=== PATIENT | male | born 1990 | race Caucasian/White ===

== ENCOUNTER 2018-03-03 11:41 | Emergency (ER) | payer MEDICAID ==
[~2018-03-03] VITALS: Ht 172.7 cm; Wt 84.1 kg
[2018-03-03 13:08] LABS: BASOPHILS % (AUTO) 0.5 % (0.0-2.0); EOSINOPHILS % (AUTO) 0 % (1.0-6.0); HEMATOCRIT 46.9 % (41-53); HEMOGLOBIN 16.3 g/dL (13.5-17.5); LYMPHOCYTES # (AUTO) 1.7 K/uL (1.0-4.8); LYMPHOCYTES % (AUTO) 15.5 % (22.0-44.0); MEAN CORPUSCULAR HEMOGLOBIN 30.5 pg (26.0-34.0); MEAN CORPUSCULAR HGB CONC 34.8 G/dL (31.0-37.0); MEAN CORPUSCULAR VOLUME 88 fL (80-100); MONOCYTES # (AUTO) 0.7 K/uL (0.1-1.0); MONOCYTES % (AUTO) 6.3 % (2.0-9.0); NEUTROPHILS # (AUTO) 8.3 K/uL (1.8-7.7); NEUTROPHILS % (AUTO) 77.7 % (40.0-70.0); PLATELET COUNT (AUTO) 360 K/uL (150-450); RED BLOOD CELL COUNT(AUTO) 5.35 MIL/uL (4.50-5.90); RED CELL DISTRIBUTION WIDTH 13.2 % (11.5-14.5)
[2018-03-03 13:34] LABS: ALANINE AMINOTRANSFERASE 23 U/L (12-78); ALBUMIN 4.4 g/dL (3.4-5.0); ALKALINE PHOSPHATASE 78 U/L (46-116); ASPARTATE AMINOTRANSFERASE 16 U/L (15-37); BILIRUBIN,TOTAL 0.4 mg/dL (0.1-1.0); CALCIUM, TOTAL 9.9 mg/dL (8.8-10.5); CARBON DIOXIDE 26 mmol/L (22-29); CREATININE 1.12 mg/dL (0.60-1.30); GLOMERULAR FILTR. RATE CALC > 60 mL/min (>60); GLUCOSE,RANDOM 115 mg/dL (70-110); TOTAL PROTEIN, SERUM 8.4 g/dL (6.4-8.2); UREA NITROGEN, BLOOD 9 mg/dL (7-18)
[2018-03-03 13:44] LABS: ANION GAP 13 mmol/L (8-16); CHLORIDE 101 mmol/L (98-107); POTASSIUM 3.2 mmol/L (3.5-5.1); SODIUM SERUM 140 mmol/L (136-145)
[2018-03-03 15:23] VITALS: BP 170/115
== END 2018-03-03 15:52 | disposition home or self-care (01) ==
LOC: EMS 11:42
DX: F22 Delusional disorders (principal); R00.0 Tachycardia, unspecified
CPT/HCPCS: 36415; 80053; 85025; 93005; 99285; G0480

== ENCOUNTER 2018-03-05 12:35 | Inpatient (IN) | payer MEDICAID, OTHER ==
[~2018-03-05] VITALS: Ht 180.3 cm; Wt 72.1 kg
[2018-03-05] MEDS ORDERED: LORazepam 2 MG/ML VIAL IM ONE (13:15)
[2018-03-05] MEDS ORDERED: DiphenhydrAMINE HCL 50 MG/ML VIAL IM ONE (13:15)
[2018-03-05] MEDS ORDERED: HALOPERIDOL LACTATE 5 MG/ML VIAL IM ONE (13:15)
[2018-03-05] MEDS ORDERED: ZOLPIDEM TARTRATE 10 MG TABLET PO PRN (13:30)
[2018-03-05] MEDS ORDERED: HALOPERIDOL 5 MG TABLET PO PRN (13:30)
[2018-03-05 13:52] LABS: BASOPHILS % (AUTO) 0.6 % (0.0-2.0); EOSINOPHILS % (AUTO) 0.1 % (1.0-6.0); HEMATOCRIT 43.6 % (41-53); HEMOGLOBIN 14.9 g/dL (13.5-17.5); LYMPHOCYTES # (AUTO) 2.1 K/uL (1.0-4.8); LYMPHOCYTES % (AUTO) 24.5 % (22.0-44.0); MEAN CORPUSCULAR HEMOGLOBIN 30.4 pg (26.0-34.0); MEAN CORPUSCULAR HGB CONC 34.3 G/dL (31.0-37.0); MEAN CORPUSCULAR VOLUME 89 fL (80-100); MONOCYTES # (AUTO) 0.7 K/uL (0.1-1.0); MONOCYTES % (AUTO) 7.9 % (2.0-9.0); NEUTROPHILS # (AUTO) 5.7 K/uL (1.8-7.7); NEUTROPHILS % (AUTO) 66.9 % (40.0-70.0); PLATELET COUNT (AUTO) 328 K/uL (150-450); RED BLOOD CELL COUNT(AUTO) 4.92 MIL/uL (4.50-5.90); RED CELL DISTRIBUTION WIDTH 13.3 % (11.5-14.5)
[2018-03-05 14:04] LABS: ANION GAP 11 mmol/L (8-16); CALCIUM, TOTAL 9.3 mg/dL (8.8-10.5); CARBON DIOXIDE 27 mmol/L (22-29); CHLORIDE 105 mmol/L (98-107); CREATININE 1.02 mg/dL (0.60-1.30); GLOMERULAR FILTR. RATE CALC > 60 mL/min (>60); GLUCOSE,RANDOM 91 mg/dL (70-110); POTASSIUM 3.5 mmol/L (3.5-5.1); SODIUM SERUM 143 mmol/L (136-145); UREA NITROGEN, BLOOD 9 mg/dL (7-18)
[2018-03-05 14:09] LABS: ALANINE AMINOTRANSFERASE 21 U/L (12-78); ALBUMIN 3.9 g/dL (3.4-5.0); ALKALINE PHOSPHATASE 72 U/L (46-116); ASPARTATE AMINOTRANSFERASE 20 U/L (15-37); BILIRUBIN,TOTAL 0.6 mg/dL (0.1-1.0); TOTAL PROTEIN, SERUM 7.4 g/dL (6.4-8.2)
[2018-03-06 00:29] VITALS: BP 119/83
[2018-03-06] MEDS ORDERED: GuaiFENesin/D-METHORPHAN [SUGAR-FREE] 200-20MG/10 ML SYRUP UDCUP PO PRN (07:15)
[2018-03-06] MEDS ORDERED: IBUPROFEN 400 MG TABLET PO PRN (07:15)
[2018-03-06] MEDS ORDERED: LOPERAMIDE HCL 2 MG CAPSULE PO PRN (07:15)
[2018-03-06] MEDS ORDERED: PETROLATUM,WHITE 71 GM JELLY TP PRN (07:15)
[2018-03-06] MEDS ORDERED: ONDANSETRON HCL 4 MG TABLET PO PRN (07:15)
[2018-03-06] MEDS ORDERED: ACETAMINOPHEN 325 MG TABLET PO PRN (07:15)
[2018-03-06] MEDS ORDERED: ALBUTEROL SULFATE HFA 90 MCG/PUFF 8 GM INHALER IH PRN (07:15)
[2018-03-06] MEDS ORDERED: MAGNESIUM HYDROXIDE SUSPENSION 30 ML UDCUP PO PRN (07:15)
[2018-03-06] MEDS ORDERED: DOCUSATE SODIUM 100 MG CAPSULE PO PRN (07:15)
[2018-03-06] MEDS ORDERED: NICOTINE 14 MG/24 HOUR PATCH TD PRN (07:15)
[2018-03-06] MEDS ORDERED: CloNIDine HCL 0.1 MG TABLET PO PRN (07:15)
[2018-03-06 08:08] VITALS: BP 127/78
[2018-03-06 08:31] LABS: CHOL/HDL RATIO 3.1 (4.2-7.3)
[2018-03-06] MEDS: RisperiDONE 1 MG TABLET PO SCH ×2 (09:41→16:24)
[2018-03-06] MEDS: LORazepam 2 MG TABLET PO PRN (09:41)
[2018-03-06 16:00] VITALS: BP 116/70
[2018-03-07 07:01] VITALS: BP 117/65
[2018-03-07 08:06] VITALS: BP 133/76
[2018-03-07] MEDS: RisperiDONE 1 MG TABLET PO SCH ×2 (08:54→16:31)
[2018-03-07] MEDS: LORazepam 2 MG TABLET PO PRN (08:54)
[2018-03-07 08:55] LABS: THYROID STIMULATING HORMONE 0.34 uIU/mL (0.36-3.74)
[2018-03-07 16:05] VITALS: BP 116/69
[2018-03-08 06:26] VITALS: BP 139/91
[2018-03-08 06:46] LABS: FREE T4 (FREE THYROXINE) 1.12 ng/dL (0.76-1.46)
[2018-03-08 08:13] VITALS: BP 123/75
[2018-03-08] MEDS: RisperiDONE 1 MG TABLET PO SCH (08:40)
[2018-03-08] MEDS ORDERED: RISP1 PO (11:26)
== END 2018-03-08 13:30 | disposition home or self-care (01) | DRG 751 ==
LOC: EMS 12:36 → B3A 19:32
PROVIDERS: ADMIT Psychiatry & Neurology Child & Adolescent Psychiatry; ATTEND Psychiatry & Neurology Child & Adolescent Psychiatry
DX: F29 Unspecified psychosis not due to a substance or known physiological condition (principal); E05.90 Thyrotoxicosis, unspecified without thyrotoxic crisis or storm; E87.6 Hypokalemia; F41.9 Anxiety disorder, unspecified; F19.10 Other psychoactive substance abuse, uncomplicated; F12.10 Cannabis abuse, uncomplicated
CPT/HCPCS: 84439; 84443; 96372; 99285; G0480; J1200; J1630; J2060